=== PATIENT | male | born 1995 | race Caucasian/White ===

== ENCOUNTER 2024-04-26 21:53 | Inpatient (IN) | payer BC, SELFPAY ==
[2024-04-26 16:14] VITALS: BP 134/94
[2024-04-26 16:30] LABS: % Basophils 0.3 % (0-2); % Eosinophils 0.5 % (0-6); % Immature Granulocytes 0.6 % (0-0.5); % Lymphocytes 11.9 % (20.5-51.1); % Monocytes 5.6 % (1.7-9.3); % Neutrophils 81.1 % (42.2-75.2); Absolute Eosinophils 0.1 10^3/uL (0-0.7); Absolute Immature Granulocytes 0.1 10^3/uL (0-0.05); Absolute Lymphocytes 1.6 10^3/uL (1.2-3.4); Absolute Monocytes 0.7 10^3/uL (0.1-0.6); Absolute Neutrophils 10.6 10^3/uL (1.4-6.5); Hematocrit 43.1 % (39.0-52.0); Hemoglobin 15.4 g/dL (13.0-18.0); Mean Corp Hgb Conc. 35.7 g/dL (33.0-37.0); Mean Corpuscular Hgb 32.1 pg (27.0-31.0); Mean Corpuscular Volume 89.8 fL (80.0-94.0); Mean Platelet Volume 9.6 fL (7.4-10.4); Nucleated Red Blood Cells % 0 % (-); Platelet Count 189 10^3/uL (130-400); Red Cell Dist. Width 11.9 % (11.5-14.5); White Blood Cell Count 13.1 10^3/uL (4.8-10.8)
[2024-04-26 16:31] LABS: Urine Albumin Negative (Neg - Trace); Urine Bilirubin Negative (Negative); Urine Character Clear (Clear); Urine Color Yellow; Urine Glucose Negative (Negative); Urine Ketone 1+ (Negative); Urine Leukocyte Negative (Negative); Urine Nitrite Negative (Negative); Urine Occult Blood Negative (Negative); Urine Specific Gravity 1.005 (<1.030); Urine Urobilinogen Negative (Neg - 1+)
[2024-04-26 16:51] LABS: ALT (SGPT) 13 U/L (0-50); AST (SGOT) 21 U/L (17-59); Albumin 5.3 g/dl (3.5-5.0); Alkaline Phosphatase 43 U/L (38-126); Blood Urea Nitrogen 9 mg/dl (9-20); Calcium 9.8 mg/dl (8.4-10.2); Carbon Dioxide 26 mmol/L (22-30); Chloride 101 mmol/L (98-107); Glucose 86 mg/dl (70-99); Lipase 48 U/L (23-300); Potassium 4.1 mmol/L (3.5-5.1); Sodium 140 mmol/L (135-145); Total Protein 7.7 g/dl (6.3-8.2); eGFR > 60.00
--- NOTE | 2024-04-26 18:19 | ED.GENMED ---
History of Present Illness
General
Chief Complaint: Abdominal Pain
Time Seen by Provider: 04/26/24 18:00
History of Present Illness
History of Present Illness:
Patient is a 29-year-old male with history of HLH status post bone marrow transplant sent to the emergency department right lower quadrant abdominal pain for the past day. Patient states that he was in his usual state of health he had dinner and
then around 10 PM yesterday developed right lower quadrant abdominal pain. He did have a temperature of 101. He did not have any nausea vomiting or changes in his bowel movements. He did drink enough water and noticed some increased urinary
frequency however that has since resolved. Right now he states that he is having some discomfort in the right lower quadrant. No prior surgeries. No back pain syncopal events or testicular involvement.
Phy Exam
Physical Exam
Physical Exam:
GENERAL: in no acute distress
HEENT: normocephalic, extraocular movements intact, moist oral mucosa
NECK: normal inspection
RESPIRATORY: no respiratory distress, clear to auscultation bilaterally
CARDIOVASCULAR: regular rate and rhythm
ABDOMEN/: soft, non-distended, mild tenderness to the right lower quadrant no rebound or guarding
EXTREMITIES: non-tender, no edema/swelling
NEUROLOGIC: awake and alert, moves all extremities
SKIN: warm
Course
Orders/Labs/Results
Orders:
Orders
04/26/24 16:17
Straight cath- Treatment ONCE
04/26/24 16:21
Urinalysis Reflex To Culture Urgent
Date Specimen was Collected: 04/26/24
Time Specimen was Collected: 16:17
04/26/24 16:25
Complete Blood Count/With Diff Urgent
Comprehensive Metabolic Panel Urgent
Direct Bilirubin Urgent
Comment: ADD ON
Lipase Urgent
04/26/24 18:02
Add On- LAB Stat
Tests Added?: direct bilirubin
CT Abd/pelvis W Iv Cont Urgent
Comment:
Reason For Exam: RLQ pain
04/26/24 20:02
0.9% Sodium Chloride 1000 ml [Nss] 1,000 ml IV BOLUS
Piperacillin/Tazo 4.5 Gram [Zosyn] 4.5 gram in 100 ml IV NOW
Abnormal Lab Results
04/26/24 04/26/24
16:21 16:25
WBC 13.1 H 10^3/uL
(4.8-10.8)
MCH 32.1 H pg
(27.0-31.0)
Abs Immat Gran (auto) 0.1 H 10^3/uL
(0-0.05)
Absolute Neuts (auto) 10.6 H 10^3/uL
(1.4-6.5)
Absolute Monos (auto) 0.7 H 10^3/uL
(0.1-0.6)
Immature Gran % 0.6 H %
(0-0.5)
Neutrophils % 81.1 H %
(42.2-75.2)
Lymphocytes % 11.9 L %
(20.5-51.1)
Total Bilirubin 2.0 H mg/dl
(0.2-1.3)
Albumin 5.3 H g/dl
(3.5-5.0)
Urine Ketones 1+ A
(Negative)
04/26/24 16:25
04/26/24 16:25
Vital Signs
Initial and Last Documented VS:
Initial Vital Signs
Temp Pulse Resp BP Pulse Ox
97.8 F 89 16 134/94 98
04/26/24 16:14 04/26/24 16:14 04/26/24 16:14 04/26/24 16:14 04/26/24 16:14
Last Documented Vital Signs
Temp Pulse Resp BP Pulse Ox
97.8 F 89 16 134/94 98
04/26/24 16:14 04/26/24 16:14 04/26/24 16:14 04/26/24 16:14 04/26/24 16:14
MDM/Problems Addressed
Differential Diagnosis Includes:
29-year-old male with history of HLH status post bone marrow transplant presenting to the emergency department 1 day of right lower quadrant abdominal tenderness. Vitals unremarkable exam does show mild right lower quadrant tenderness.
Differential is broad but consists of a appendicitis versus UTI versus enteritis or viral infection. Blood work obtained prior to elevation does show an elevated total bilirubin. Will add on direct bilirubin. Also obtain CT scan. I did offer
pain medication however patient denies at this time.
*Critical Care Note
Total Time (30-74mins, 75-104mins- exclusive of procedures): Not Applicable
Update Note
Update Note:
CT scan with signs of acute appendicitis with no perforation or abscess. Discussed with general surgery who will admit to their service. Did offer pain medications again however patient denied at this time. Will start IV antibiotics.
ED Attending Note
-
Portions of this chart may have been created with voice recognition software.� Occasional wrong word or��sound alike� substitutions may have occurred due to the inherent limitations of voice recognition software.
Discharge Plan
Departure
Patient Disposition: Admit
Date of Disposition: 04/26/24
Time of Disposition: 20:24
Presentation/result/management discussed w/ accepting MD/DO: gen surg
Discharge Problem:
Acute appendicitis
Prescriptions:
No Action
No Current Medications
0
Referrals:
NONE,* [Family Provider] -
Interventions
Interventions:
*Risk Screen - Suicide Last Done: 04/26/24 16:14
*General Assessment Last Done: 04/26/24 16:14
*Neglect/Abuse Screening Last Done: 04/26/24 16:14
CA-Bupxmq-Ioqjrkrwgb Assessment Last Done: 04/26/24 18:48
Discharge Date and Time
Print Language: YORUBA
[2024-04-26 18:34] LABS: Direct Bilirubin 0.3 mg/dl (0.0-0.4)
[2024-04-26] MEDS: NSS 1000 IV ×2 (20:22→23:00)
[2024-04-26] MEDS: ZOSYN 100 IV (20:25)
--- NOTE | 2024-04-26 23:16 | HPS.HSE ---
Addendum entered and electronically signed by Pramod Richards MD 04/27/24 11:45:
Due to gallstone versus gallbladder polyp noted on CT, will obtain a right upper quadrant ultrasound; patient will likely need general surgery follow-up if gallbladder polyp diagnosed
Addendum entered and electronically signed by Pramod Richards MD 04/27/24 09:49:
29-year-old male with PMH of HLA s/p BMT at 19 years old, who presents with 1-1/2 days of progressively worsening RLQ abdominal pain, no N/V, CP/SOB, urinary symptoms; WBC 13.1, CT showing dilated appendix with periappendiceal stranding, no fecalith
perforation or abscess
AFVSS, ABD soft, nondistended, mildly tender with deep palpation in the RLQ, no rebound or guarding
WBC 6.8
� Acute appendicitis; recommend appendectomy; had lengthy discussion regarding risk benefits and alternatives and patient agrees with proceeding with surgery
� Keep n.p.o. with IVF
� IV Zosyn until surgery
� OOB/IS
� Pain control with Toradol and Dilaudid as needed
� OOB/IS
Original Note:
Family Physician
-
Family Physician: * NONE
Chief Complaint
-
'abdomen pain'
History of Present Illness
29 y/o patient presents to ER with c/o dull abdomen pain at RLQ started yesterday evening and been constant without radiating. Patient denies nausea, vomiting, chills or fever. LBM today which was normal and without any blood. Voiding was frequent
as he drank lots of water to relieve pain. At present states 3/10 pain, Denies chest pain or shortness of breath. No Hx of surgeries.
Medical History
Past Medical History
Past Medical History: Reports Other (HLH status bone marrow transplant in 2014 )
Past Surgical History: Reports Other
Additional Past Surgical History:
bone marrow 2015
Social History
Tobacco: Vaping (occasionally )
Alcohol: Occasional
Drug: None
Living: With Family
Family History
Family History: Not pertinent
Allergies / Home Medications
Allergies reflects when Allergies were last updated in [employer].
Home Medications with original date entered in [employer]
Allergy/Medication List:
Allergies
Allergy/AdvReac Type Severity Reaction Status Date / Time
No Known Allergies Allergy Verified 04/26/24 16:14
Home Medications
No Meds [No Current Medications] 04/26/24
Review of Systems
-
History Source: Patient
A 12 point ROS was completed and negative except as noted: Yes
Constitutional: Reports No Symptoms
EENT: Reports No Symptoms
Respiratory: Reports No Symptoms
Cardiac: Reports No Symptoms
Abdomen/GI: Reports Abdominal Pain (RLQ)
: Reports No Symptoms
Musculoskeletal: Reports No Symptoms
Skin: Reports No Symptoms
Neurological: Reports No Symptoms
Endocrine: Reports No Symptoms
Hematologic/Lymphatic: Reports No Symptoms
Psych: Reports No Symptoms
Physical Exam
Vital Signs
Vital Signs
Temp Pulse Resp BP Pulse Ox
97.8 F 89 16 134/94 98
04/26/24 16:14 04/26/24 16:14 04/26/24 16:14 04/26/24 16:14 04/26/24 16:14
Physical Exam
General: Well Developed, Well Nourished and No Apparent Distress
HEENT: NormoCephalic, Moist mucous membranes and Atraumatic
Respiratory: Clear and Non Labored Respirations
Cardiac: S1/S2 and Regular Rhythm
GI: Soft, Non Distended, Normal Bowel Sounds and Tender (mild tenderness RLQ)
Rectal: Deferred by Provider
Genito-urinary: Deferred by me
Musculoskeletal: No Clubbing, No Cyanosis and No Edema
Skin: Warm and Dry
Neuro: Awake, AO x 3 and Nonfocal/grossly intact
Hematologic/Lymphatic: No Lymphadenopathy
Psych: Calm and Intact Judgment/Insight
Laboratory Results
-
04/26/24 16:25
04/26/24 16:25
Laboratory Results
Total Bilirubin 2.0 mg/dl (0.2-1.3) H 04/26/24 16:25
AST 21 U/L (17-59) 04/26/24 16:25
ALT 13 U/L (0-50) 04/26/24 16:25
Alkaline Phosphatase 43 U/L (38-126) 04/26/24 16:25
Lipase 48 U/L (23-300) 04/26/24 16:25
Data Reviewed
-
CT Scan: Report Reviewed by me
Lab Data: Labs Reviewed by me
Impression/Plan
-
29 y/o with the c/o abdomen pain
# Abdomen pain likely due to Acute Appendicitis
- CT abdomen/Pelvis: There is a dilated appendix with mucosal hyperenhancement and surrounding stranding consistent with acute appendicitis.
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
8 mm hyperdense focus within the gallbladder fundus which may represent polyp, possible gallstone.
-WBC 13.1
-Continue IVF
-Continue IV antibiotics
-refusing pain medications at this time
-NPO
-labs in AM
-Admit to Dr. Richards
# Asymptomatic Hyperbilirubinemia
-Total Bilirubin 2.0
-Direct bilirubin 0.3
-not on any medications, no hepatitis risk factors, occasional alcohol consumption
-denies any fever, right upper quadrant pain, myalgias
-can check outpatient lab
# HLH
Hx of Bone marrow transplant in 2014
DVT prophylaxis: SCD's
Full Code
[2024-04-26 23:33] VITALS: BP 112/74; BMI 17.7
[2024-04-27] VITALS (8 sets, daily range): BP systolic 104–131; BP diastolic 55–79
--- NOTE | 2024-04-27 01:03 | PTCARENOTE ---
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 2014 pt had a Bone Marrow Transplant. Pt vaps occasionally. Pt present in ED with RLQ pain which
began the prior evening.
Ct abd- There is a dilated appendix with mucosal hyperenhancement and surrounding stranding consistent with acute appendicitis.
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 8 mm hyperdense focus within the gallbladder fundus which may represent polyp, possible gallstone. Pt NPO, oral meds allowed, for possible surgery tomorrow.
Pt AOx3, bed in a low position, call ruiz in reach. pt denies pain.
[2024-04-27] MEDS: ZOSYN 50 IV ×2 (01:43→07:38)
[2024-04-27 07:09] LABS: Hematocrit 35.5 % (39.0-52.0); Hemoglobin 12.7 g/dL (13.0-18.0); Mean Corp Hgb Conc. 35.8 g/dL (33.0-37.0); Mean Corpuscular Hgb 32.4 pg (27.0-31.0); Mean Corpuscular Volume 90.6 fL (80.0-94.0); Mean Platelet Volume 10.1 fL (7.4-10.4); Platelet Count 150 10^3/uL (130-400); Red Blood Cell Count 3.92 10^6/uL (4.70-6.10); White Blood Cell Count 6.8 10^3/uL (4.8-10.8)
[2024-04-27 07:46] LABS: ALT (SGPT) < 10 U/L (0-50); AST (SGOT) 17 U/L (17-59); Albumin 3.8 g/dl (3.5-5.0); Alkaline Phosphatase 28 U/L (38-126); Blood Urea Nitrogen 11 mg/dl (9-20); Calcium 8.5 mg/dl (8.4-10.2); Carbon Dioxide 21 mmol/L (22-30); Chloride 106 mmol/L (98-107); Estimated Creatinine Clearance 108 ml/min; Glucose 70 mg/dl (70-99); Potassium 4.2 mmol/L (3.5-5.1); Sodium 139 mmol/L (135-145); Total Bilirubin 1.8 mg/dl (0.2-1.3); Total Protein 5.8 g/dl (6.3-8.2); eGFR > 60.00
--- NOTE | 2024-04-27 11:29 | W.IMMPOSTOP ---
Surgical Immed Post Op Note
-
Primary Surgeon: Pramod Richards MD
Assisting Surgeon: None
Pre-op Diagnosis: Acute appendicitis
Post-op Diagnosis: Acute appendicitis
Procedure Performed: Laparoscopic appendectomy
Anesthesia Type: General
Specimen / Cultures: Appendix
Estimated Blood Loss: 15 mL
Complications: None
Operative Findings: Acutely inflamed, nonperforated and lightly adherent to the right lower quadrant, easily freed with blunt dissection; staple line without bleeding
--- NOTE | 2024-04-27 11:30 | OR.RPT ---
Operative Report
Operative Report
DATE OF OPERATION: 04/27/2024
SURGEON: Pramod Richards MD
PREOPERATIVE DIAGNOSIS: Acute appendicitis
POSTOPERATIVE DIAGNOSIS: Acute nonperforated appendicitis
OPERATION: Laparoscopic appendectomy
ASSISTANTS:
1. Pramod Richards MD
ANESTHESIA: General
ESTIMATED BLOOD LOSS: 15 mL
FINDINGS:
1. Appendix was inflamed and lightly adherent to the right lower quadrant in a retrocecal position, no perforation
SPECIMENS:
1. Appendix
DRAINS: None
COMPLICATIONS: No immediate complications.
INDICATIONS: The patient is a 29-year-old male who presented to the [facility] ED with 1 day of progressively worsening right lower quadrant abdominal pain. WBC was [address] scan showed a dilated appendix with periappendiceal stranding, no
evidence of perforation or abscess. Therefore, I recommended appendectomy. The operation was discussed with the patient in detail, including the risks, benefits and alternatives (i.e antibiotics alone). Risks described included, but not limited to,
bleeding, infection, damage to nearby structures (i.e., bowel, bladder, epigastric vessels), recurrence, conversion to open, and anesthetic risks. The patient understood and agreed to proceed. The consent was signed and placed in the chart.
PROCEDURE IN DETAIL: The patient was taken to the operating room and placed on the operating table in supine position. Sequential compression devices were placed bilaterally. General anesthesia was then induced and the patient was intubated without
complication. The patient was secured to the bed with 1 seatbelt, the right arm secured to the armboard and the left arm was tucked. Johnson catheter was placed with sterile technique. IV Zosyn was recently given on the floor. The abdomen was then
prepped and draped in the usual sterile fashion. A time-out was then performed verifying the correct patient, procedure, operative site, positioning, and special equipment.
Electrocautery on cut was used to make a curvilinear infraumbilical incision about 1.5 cm in length. This was taken down to the level of the fascia using Bovie electrocautery and blunt dissection with S-retractors. The fascia was then grasped with
Blair clamps and elevated. A 15 blade was used to incise the fascia. A Lydia clamp was introduced and used to spread the fascia. Hemostat clamps were used to grasp and elevate the peritoneum. A Metzenbaum scissors was used to incise the
peritoneum taking care to avoid injury to intra-abdominal structures. Abdominal entry was confirmed visually and a finger was used to ensure no nearby adhesions. The 12 mm balloon-tipped Harris port was then inserted and the balloon insufflated
with 20 mL of air. The abdomen was insufflated to a pressure of 15 mmHg. The patient tolerated insufflation well. A 10-30 laparoscope was inserted and the abdomen inspected. No injury was noted from initial abdominal entry. The appendix was not
immediately identifiable. Two more 5 mm ports were placed under direct visualization in the left lower quadrant and the suprapubic region, taking care to avoid any injury to the epigastric vessels and the bladder respectively. The patient was then
placed in Trendelenburg position with the right side up.
Two atraumatic graspers were used to identify the cecum, terminal ileum and appendix. The appendix was inflamed and dilated and located in a retrocecal position. It was loosely adherent to the right lower quadrant. The appendix was easily freed
with blunt dissection. There was no evidence of perforation. The appendix was grasped and elevated to expose the mesoappendix, which was serially ligated to the base of the appendix with the Voyant LigaSure. With the appendix freely mobile, I
switched to the 5-30 laparoscope and divided the appendix using the 45 mm laparoscopic linear cutting stapler. The appendix was placed in an Endocatch bag and placed to the side.
The right lower quadrant was then irrigated with saline and suctioned. Hemostasis at the staple line and mesoappendix was confirmed. Attention was turned to the pelvis and this was also irrigated and suctioned. The balloon port of the Latif trocar
was deflated, the trocar removed and the appendix extracted without difficulty. The appendix was passed off as specimen. Next, the suprapubic port and LLQ port were removed under direct visualization, no bleeding was noted. The abdomen was allowed
to collapse. The fascia at the infraumbilical port site was closed with two 0 Vicryl stitches in a [id number] fashion. The skin of the ports were closed with 4-0 Monocryl in subcuticular fashion. The incisions were injected with a total of
30 mL of 0.25% Marcaine with epinephrine and 0.3 mg of dexamethasone. Dermabond was used for dressing.
At this point, the procedure was complete. The patient was awoken and extubated without complication. The johnson was removed. All needle, sponge and instrument counts were reported as correct. The patient tolerated the procedure well and was
transferred to the recovery room in stable condition.
DICTATED BY: Pramod Richards MD
[2024-04-27] MEDS: TORADOL 15 MG IV (11:56)
[2024-04-27] MEDS: TYLENOL 1000 MG PO (12:39)
[2024-04-27] MEDS: ROXICODONE 5 MG PO (12:39)
--- NOTE | 2024-04-27 13:02 | W.DS.TRANS ---
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
-
Discharge Instructions:
Discharge Diagnosis/Procedures Laparoscopic appendectomy
Diet Regular
Activity No strenuous activity
Additional Activity No lifting over 10lbs (gallon of milk)
Driving Restrictions No driving for 1 week
Bathing Restrictions OK to Shower
Wound Care Allow glue to naturally fall off. Do not pick at
incisions.
Instructions: Appendectomy, Laparoscopic Surgery (DC)
Stand-Alone Forms:
Changes to Home Medications: Yes
Discharge Medications:
DC Medications w/original date entered in [employer]
oxycodone 5 mg tablet 5 mg PO Q6H PRN Pain #20 tabs 04/27/24
Home Medication Changes
oxycodone 5 mg tablet 5 mg PO Q6H PRN Pain #20 tabs 04/27/24
Pending Results: Yes
Additional Pending Results:
pathology
[2024-04-27] MEDS: NSS IV (13:18)
--- NOTE | 2024-04-27 14:20 | CM ---
Pt was taken for appendectomy today and will dc to home.
[2024-04-27] MEDS: MOTRIN 600 MG PO (15:59)
== END 2024-04-27 16:35 | disposition home or self-care (01) | DRG 398 ==
LOC: 2 SOUTH 21:53
PROVIDERS: Emergency Medicine; Nurse Practitioner Gerontology; ADMITTING PHYSICIAN Surgery; EMERGENCY PHYSICIAN Student in an Organized Health Care Education/Training Program
PROC: 0DTJ4ZZ Resection of Appendix, Percutaneous Endoscopic Approach (ICD-10-PCS; 2024-04-27)
DX: K35.80 Unspecified acute appendicitis (principal); Z94.81 Bone marrow transplant status
CPT/HCPCS: 88304; 74177; 76700; 80053; 81003; 82248; 83690; 85025; 85027; 96361; 96374; 99284; C1776; Q9967